=== PATIENT | female | born 1975 | race Caucasian/White ===

== ENCOUNTER → 2017-03-14 | Outpatient (CLI) | payer OTHER ==
[~2017-03-14] MED LIST: /ADVA50050; /DULO30CA; /FEXO18TA; BUDE150T; BUPR100T12; COLA100C2; DOXY100T PO; FLECTOR1.3 TD; FLEXERIL; FOLI1TAB; FURO40TA2 PO; GABA300T; GABA600T3; KEFL500C; LEVO125T6; LEVO150T PO; LYRI75CA PO; NEUR400C PO; OXYC10TA97; PERC5TAB8; PRAV40TA; PRIL20CA; SING10TA31; SING10TA31 PO; SKEL800T5 OR; TOPI50TA PO; TRAM50TA2 PO; Theragran; VENTAER; VICO5TAB; WELL200T PO; ZINC220T2; stool softner
[2017-03-14 14:28] LABS: FREE T4 0.9 NG/DL (0.76-1.46)
== END ==
LOC: M LAB 12:11
PROVIDERS: ATTEND Nurse Practitioner Family
DX: E03.9 Hypothyroidism, unspecified (principal)

== ENCOUNTER → 2017-03-14 | Outpatient (CLI) | payer OTHER ==
--- NOTE | 2017-03-14 13:50 | REP ---
CT THORACIC SPINE WITHOUT CONTRAST: HISTORY: Thoracic pain. COMPARISON: 03/01/2015 A disc bulge is present at the T10-11 level. There is hypertrophy of the posterior articulating facets. There is minimal compression of the thecal sac. The T10 neural foramina are patent. There is no other disc bulge or herniation. The remaining neural foramina are patent. The intervertebral discs and vertebral bodies are normal in height. Small anterior osteophytes are present in the mid and lower thoracic spine. A dorsal column stimulator is present in the spinal canal at the T6-7 level. The stimulator enters the spinal canal at the T7-8 level. There is no subluxation. IMPRESSION: 1. Diffuse disc bulge at the T10-11 level with minimal thecal sac compression. 2. A dorsal column stimulator is present in the spinal canal at the T6-7 level. There is no significant change compared to the previous study. Signed by Gorge Molina MD 03/14/2017 01:55 P
--- NOTE | 2017-03-14 13:56 | REP ---
CT LUMBAR SPINE WITHOUT CONTRAST: HISTORY: Thoracic pain. COMPARISON: 02/16/2016 There is no disc bulge or herniation at the L1-2 through L3-4 levels. The nerves exit the neural foramina without compression. A diffuse disc bulge is present at the L4-5 level. There is hypertrophy of the ligamenta flava and posterior articulating facets. These findings produce mild central canal stenosis. The L4 nerves exit the neural foramina without compression. The patient is status post L5-S1 anterior and posterior spinal fusion and laminectomy. Bone graft material is present anteriorly and metal rods and pedicle screws posteriorly. A diffuse disc bulge is present. There is no thecal sac compression. There is hypertrophy of the posterior articulating facets. The L5 nerves exit the neural foramina without compression. Scar tissue is present at the laminectomy site and in the lateral aspects of the spinal canal. The scar tissue involves the S1 nerves. The L4-5 intervertebral disc is decreased in height consistent with disc degeneration. There is no subluxation. IMPRESSION: 1. Mild central canal stenosis at the L4-5 level secondary to disc bulge, ligamentous and facet hypertrophy. 2. The patient is status post L5-S1 anterior and posterior spinal fusion and laminectomy. There is anatomic alignment of the lumbar spine. Scar tissue involves the S1 nerves. There is no significant change compared to the previous study. Signed by oGrge Molina MD 03/14/2017 02:12 P
--- NOTE | 2017-03-14 20:53 | REP ---
CT CERVICAL SPINE WITHOUT CONTRAST: HISTORY: Cervicalgia. A disc bulge is present at the C3-4 level. Disc bulges with associated osteophyte formation are present at the C4-5 and C5-6 levels. There is minimal narrowing of the spinal canal. Uncinate process hypertrophy is present at the C4-5 and C5-6 levels. This produces minimal to moderate narrowing of the neural foramina. The C4-5 and C5-6 intervertebral discs are decreased in height consistent with disc degeneration. IMPRESSION: There is cervical spondylosis at the C3-4 through C5-6 levels. Signed by Gorge Molina MD 03/15/2017 07:46 A
== END ==
LOC: M RAD 12:40
PROVIDERS: ATTEND Psychiatry & Neurology Neurology
DX: R93.7 Abnormal findings on diagnostic imaging of other parts of musculoskeletal system (principal); M54.2 Cervicalgia; M43.02 Spondylolysis, cervical region; R20.2 Paresthesia of skin; M54.6 Pain in thoracic spine; M43.06 Spondylolysis, lumbar region

== ENCOUNTER → 2017-03-14 | Outpatient (CLI) | payer OTHER ==
[2017-03-14 14:05] LABS: FOLATE 8.3 NG/ML (>5.4); VITAMIN B12 LEVEL 490 PG/ML (247-911)
[2017-03-14 14:17] LABS: TOTAL PROTEIN 6.9 GM/DL (6.4-8.2)
[2017-03-18 12:24] LABS: ALBUMIN 4.09 GM/DL (3.29-5.55); ALBUMIN % 59.3 % (55.8-66.1); GAMMA GLOBULIN % 12.3 % (11.1-18.8)
[2017-03-19 08:06] LABS: VITAMIN E LEVEL 10.4 mg/L (5.3-16.8)
== END ==
LOC: M LAB 12:18
PROVIDERS: ATTEND Psychiatry & Neurology Neurology
DX: Z13.1 Encounter for screening for diabetes mellitus (principal); Z13.29 Encounter for screening for other suspected endocrine disorder; R20.0 Anesthesia of skin

== ENCOUNTER → 2018-04-04 | Outpatient (CLI) | payer OTHER | LOC: M RAD 07:21 | DX: M96.1 Postlaminectomy syndrome, not elsewhere classified (principal); M54.16 Radiculopathy, lumbar region; M51.24 Other intervertebral disc displacement, thoracic region; G43.909 Migraine, unspecified, not intractable, without status migrainosus; M47.814 Spondylosis without myelopathy or radiculopathy, thoracic region; M79.1 Myalgia; M46.1 Sacroiliitis, not elsewhere classified; M51.36 Other intervertebral disc degeneration, lumbar region; M51.26 Other intervertebral disc displacement, lumbar region; M51.27 Other intervertebral disc displacement, lumbosacral region; M25.561 Pain in right knee; M25.60 Stiffness of unspecified joint, not elsewhere classified; G25.81 Restless legs syndrome; M70.60 Trochanteric bursitis, unspecified hip | CPT/HCPCS: 76604 ==

== ENCOUNTER → 2021-07-25 | Outpatient (CLI) | payer OTHER ==
[~2021-07-25] MED LIST changes: -/ADVA50050; -/DULO30CA; +ADVA1AER2; +CYMB1CAP5
== END ==
LOC: M PLALAB 11:34
PROVIDERS: ATTEND Internal Medicine Gastroenterology
DX: K58.0 Irritable bowel syndrome with diarrhea (principal)

== ENCOUNTER → 2021-07-26 | Outpatient (REF) | payer OTHER | LOC: M LAB REF 13:07 | PROVIDERS: ATTEND Internal Medicine Gastroenterology | DX: K58.0 Irritable bowel syndrome with diarrhea (principal) ==

== ENCOUNTER → 2021-08-01 | Outpatient (CLI) | payer OTHER ==
[2021-08-01 17:58] LABS: FREE T4 1.12 NG/DL (0.76-1.46); THYROID STIMULATING HORMONE 0.5 uIU/ML (0.358-3.740)
[2021-08-01 18:01] LABS: THYROID PEROXIDASE ANTIBODY 184.7 U/ML (<60.0)
== END ==
LOC: M PLALAB 14:41
PROVIDERS: ATTEND Internal Medicine Endocrinology, Diabetes & Metabolism
DX: E03.9 Hypothyroidism, unspecified (principal)

== ENCOUNTER → 2021-10-04 | Outpatient (CLI) | payer OTHER ==
[~2021-10-04] MED LIST changes: +ATOR1TAB21 PO; +BUPR150T12 PO; +BUTA-198 PO; +CETI-24 PO; +ESTR1TAB PO; +FLUTISP; +GABA800T4 PO; +HYDR-3363 PO; +LEVO150T7 PO; +MELO15TA28 PO; +MONT10TA10 PO; +OXYC10TA3 PO; +ROPI3TAB3 PO; +TOPA100T12 PO; +TRAZ1TAB14 PO; +VENL150C43 PO; +VENL75TA2 PO
== END ==
LOC: M LABSMTC 10:11
PROVIDERS: ATTEND Anesthesiology
DX: Z01.812 Encounter for preprocedural laboratory examination (principal); Z20.822 Contact with and (suspected) exposure to COVID-19

== ENCOUNTER 2021-10-09 08:00 | Day surgery (SDC) | payer OTHER ==
[~2021-10-09] VITALS: Ht 162.6 cm; Wt 77.6 kg
[~2021-10-09 08:00] MED LIST changes: +NS 1,000 ML IV ONE
[2021-10-09] MEDS ORDERED: propofoL 200 MG/20 ML VIAL As Ordered ONE (08:21)
[2021-10-09] MEDS ORDERED: propofoL 500 MG/50 ML VIAL As Ordered ONE (08:48)
[2021-10-09] MEDS ORDERED: LIDOCAINE 2% 100MG/5ML SDV (FOR ANES.) As Ordered ONE (08:48)
--- NOTE | 2021-10-09 09:03 | ROOR ---
Patient Name: Yesika Camp Procedure Date: 10/09/2021 8:39 AM Date of : 1975 Age: 46 Room: [facility] Gender: Female Note Status: Finalized Procedure: Colonoscopy Indications: Abdominal pain, Clinically significant diarrhea of unexplained origin, Change in bowel habits Providers: Mark Shabazz MD Referring MD: [facility] Provider: Medicines: Monitored Anesthesia Care Complications: No immediate complications. Procedure: Pre-Anesthesia Assessment: - The heart rate, respiratory rate, oxygen saturations, blood pressure, adequacy of pulmonary ventilation, and response to care were monitored throughout the procedure. The Colonoscope was introduced through the anus and advanced to 10 cm into the ileum. The colonoscopy was performed without difficulty. The patient tolerated the procedure well. The quality of the bowel preparation was good. Findings: The perianal and digital rectal examinations were normal. A diminutive polyp was found in the ascending colon. The polyp was sessile. The polyp was removed with a cold snare. Resection and retrieval were complete. The exam was otherwise normal throughout the examined colon. The terminal ileum appeared normal. Biopsies for histology were taken with a cold forceps from the entire colon for evaluation of microscopic colitis. Impression: - One diminutive polyp in the ascending colon, removed with a cold snare. Resected and retrieved. - Small internal hemorrhoids. - The colon is otherwise normal. - The terminal ileum is normal. - Biopsies were taken with a cold forceps from the entire colon for evaluation of microscopic colitis. - (Irritable Bowel Syndrome/IBS suspected.) Recommendation: - Use fiber, for example Citrucel, Fibercon, Konsyl or Metamucil. - Telephone endoscopist for pathology results in 2 weeks. - Repeat colonoscopy in 5 years for surveillance. Procedure Code(s): --- Professional --- 53022, Colonoscopy, flexible; with removal of tumor(s), polyp(s), or other lesion(s) by snare technique 32653, 59, Colonoscopy, flexible; with biopsy, single or multiple Diagnosis Code(s): --- Professional --- R19.4, Change in bowel habit R19.7, Diarrhea, unspecified R10.9, Unspecified abdominal pain K63.5, Polyp of colon CPT copyright 2019 [employer]. All rights reserved. The codes documented in this report are preliminary and upon clinical research tech review may be revised to meet current compliance requirements. Mark Shabazz MD Mark Shabazz MD 10/09/2021 9:03:35 AM Electronically signed by Mark Shabazz MD Number of Addenda: 0 Note Initiated On: 10/09/2021 8:39 AM Estimated Blood Loss: Estimated blood loss: none.
[2021-10-09 09:20] VITALS: BP 112/69
== END 2021-10-09 09:30 | disposition home or self-care (01) ==
LOC: M OPP 08:00
PROVIDERS: ATTEND Internal Medicine Gastroenterology
DX: D12.2 Benign neoplasm of ascending colon (principal); R19.4 Change in bowel habit; R19.7 Diarrhea, unspecified; R10.9 Unspecified abdominal pain; E78.5 Hyperlipidemia, unspecified; E03.9 Hypothyroidism, unspecified; R12 Heartburn; M79.7 Fibromyalgia; F32.A Depression, unspecified; F41.9 Anxiety disorder, unspecified; Z98.51 Tubal ligation status; Z79.899 Other long term (current) drug therapy

== ENCOUNTER → 2021-11-22 | Outpatient (CLI) | payer OTHER ==
[~2021-11-22] MED LIST changes: -NS 1,000 ML IV ONE
--- NOTE | 2021-11-22 13:17 | REPVR ---
PROCEDURE INFORMATION: Exam: CT Maxillofacial Without Contrast, Sinus Exam date and time: 11/22/2021 10:44 AM Age: 46 years old Clinical indication: Face pain; Additional info: Chronic maxillary sinititus TECHNIQUE: Imaging protocol: CT Maxillofacial without contrast. Focus on the sinuses. Radiation optimization: All CT scans at this facility use at least one of these dose optimization techniques: automated exposure control; mA and/or kV adjustment per patient size (includes targeted exams where dose is matched to clinical indication); or iterative reconstruction. COMPARISON: CT Spine,cervical w/o contrast 03/14/2017 12:50 PM FINDINGS: Frontal sinuses: Normal. No air-fluid levels. Ethmoid air cells: Normal. No air-fluid levels. Sphenoid sinuses: Normal. No air-fluid levels. Maxillary sinuses: Normal. No air-fluid levels. Ostiomeatal units are patent. Nasal cavity/Septum: Unremarkable. Orbital cavity: Orbits are normal. Globes are unremarkable. Bones/joints: Unremarkable. Soft tissues: Unremarkable. IMPRESSION: The visualized paranasal sinuses are clear. There are no air fluid levels to suggest acute sinusitis. Electronically signed by: Toni Lopez On 11/22/2021 13:17:02 PM
== END ==
LOC: M PLAIMG 10:28
PROVIDERS: ATTEND Physician Assistant Medical
DX: J32.0 Chronic maxillary sinusitis (principal)

== ENCOUNTER → 2021-12-14 | Outpatient (CLI) | payer OTHER ==
[~2021-12-14] MED LIST changes: -MONT10TA10 PO; +MONT10TA97 PO
[2021-12-14 15:19] LABS: FREE T4 1.43 NG/DL (0.76-1.46); THYROID STIMULATING HORMONE 2.64 uIU/ML (0.358-3.740)
== END ==
LOC: M PLALAB 09:19
PROVIDERS: ATTEND Nurse Practitioner Family
DX: E06.3 Autoimmune thyroiditis (principal)

== ENCOUNTER → 2022-02-02 | Outpatient (CLI) | payer OTHER | LOC: M PLARAD 11:11 | PROVIDERS: ATTEND Nurse Practitioner Family | DX: M54.16 Radiculopathy, lumbar region (principal); Z53.9 Procedure and treatment not carried out, unspecified reason ==

== ENCOUNTER → 2022-05-08 | Outpatient (CLI) | payer OTHER | LOC: M WHC 09:56 | PROVIDERS: ATTEND Obstetrics & Gynecology | DX: R10.2 Pelvic and perineal pain (principal) ==

== ENCOUNTER → 2022-09-07 | Outpatient (CLI) | payer OTHER ==
[2022-09-07 11:22] LABS: BASO # 0.1 10^3/uL (0.0-0.2); BASO % 0.7 % (0.0-1.0); EOS # 0.1 10^3/uL (0.0-0.5); EOS % 1.4 % (0.0-3.0); HEMATOCRIT 46.1 % (36.0-47.0); HEMOGLOBIN 15.1 g/dl (12.0-15.5); LYMPH # 3.5 10^3/uL (1.5-5.0); LYMPH % 34.6 % (24.0-44.0); MEAN CORPUSCULAR HEMOGLOBIN 33.3 pg (27.0-33.0); MEAN CORPUSCULAR HGB CONC 32.8 g/dl (32.0-36.5); MEAN CORPUSCULAR VOLUME 101.5 fl (80.0-96.0); MONO # 0.7 10^3/uL (0.0-0.8); NEUTROPHILS # 5.6 10^3/uL (1.5-8.5); NEUTROPHILS % 55.9 % (36.0-66.0); PLATELET COUNT, AUTOMATED 299 10^3/uL (150-450); RED BLOOD COUNT 4.54 10^6/uL (4.00-5.40)
[2022-09-07 12:11] LABS: ALBUMIN 3.6 GM/DL (3.2-5.2); BLOOD UREA NITROGEN 10 MG/DL (7-18); CARBON DIOXIDE LEVEL 29 MEQ/L (21-32); CHLORIDE LEVEL 105 MEQ/L (98-107); CHOLESTEROL LEVEL 170 MG/DL (<200); CREATININE FOR GFR 0.77 MG/DL (0.55-1.30); FREE T4 0.98 NG/DL (0.76-1.46); GLOMERULAR FILTRATION RATE > 60.0 (>58); GLUCOSE, FASTING 94 MG/DL (70-100); HDL CHOLESTEROL 68 MG/DL (>40); LDL CHOLESTEROL 77 MG/DL (<100); NON-HDL-C 102 MG/DL; PHOSPHORUS LEVEL 3.5 MG/DL (2.5-4.9); POTASSIUM SERUM 4.5 MEQ/L (3.5-5.1); SODIUM LEVEL 137 MEQ/L (136-145); TRIGLYCERIDES LEVEL 127 MG/DL (<150)
== END ==
LOC: M RAD 10:42
PROVIDERS: ATTEND Physician Assistant
DX: Z01.818 Encounter for other preprocedural examination (principal); I10 Essential (primary) hypertension; E78.5 Hyperlipidemia, unspecified; E03.9 Hypothyroidism, unspecified; R94.31 Abnormal electrocardiogram [ECG] [EKG]; Z96.9 Presence of functional implant, unspecified

== ENCOUNTER → 2023-01-09 | Outpatient (CLI) | payer OTHER | LOC: M SOG 08:04 | PROVIDERS: ATTEND Orthopaedic Surgery | DX: M50.31 Other cervical disc degeneration, high cervical region (principal); M50.321 Other cervical disc degeneration at C4-C5 level; M50.322 Other cervical disc degeneration at C5-C6 level ==

== ENCOUNTER → 2023-02-28 | Outpatient (CLI) | payer OTHER ==
[~2023-02-28] MED LIST changes: +FLUT50SP17; -FLUTISP
== END ==
LOC: M PLAIMG 11:40
PROVIDERS: ATTEND Nurse Practitioner Family
DX: M47.814 Spondylosis without myelopathy or radiculopathy, thoracic region (principal)

== ENCOUNTER → 2023-09-24 | Outpatient (REF) ==
[~2023-09-24] MED LIST changes: +ROPI3TAB18 PO; -ROPI3TAB3 PO
== END ==
LOC: M PLAIMG 10:31
PROVIDERS: ATTEND Internal Medicine
DX: R52 Pain, unspecified (principal)

== ENCOUNTER → 2023-10-02 | Outpatient (REF) | LOC: M PLAIMG 08:21 | PROVIDERS: ATTEND Internal Medicine | DX: M25.512 Pain in left shoulder (principal); M13.861 Other specified arthritis, right knee ==

== ENCOUNTER 2025-01-28 06:02 | Day surgery (SDC) | payer OTHER ==
[~2025-01-28] VITALS: Ht 162.6 cm; Wt 85.0 kg
[~2025-01-28 06:02] MED LIST changes: +ALBU2.5V10 INH; +B-12100010 PO; +BUDE10.7; +BUPR-597 PO; +C 50TAB PO; +CALC600T61 PO; +COQ150CH PO; -FLUT50SP17; +FLUTISP; +GABA-1635 PO; -GABA800T4 PO; +LEVO175T2 PO; +OMEP40CA5 PO; +OXYB5TAB14 PO; +PHEN-239 PO; +RIME75TA PO; +ROPI3TAB PO; +SUMA50TA2 PO; +TIZA10TA PO; +VITA100093 PO
[2025-01-28 06:35] LABS: HEMATOCRIT 43.2 % (36.0-47.0); HEMOGLOBIN 14.7 g/dl (12.0-15.5); MEAN CORPUSCULAR HEMOGLOBIN 33.2 pg (27.0-33.0); MEAN CORPUSCULAR VOLUME 97.5 fl (80.0-96.0); PLATELET COUNT, AUTOMATED 330 10^3/uL (150-450); RED BLOOD COUNT 4.43 10^6/uL (4.00-5.40); WHITE BLOOD COUNT 10.1 10^3/uL (4.0-10.0)
[2025-01-28] MEDS ORDERED: LR 1,000 ML IV SCH ×3 (06:40→10:20)
[2025-01-28] MEDS ORDERED: ONDANSETRON 4MG 2ML VIAL As Ordered ONE (06:51)
[2025-01-28] MEDS ORDERED: LIDOCAINE 2% 100MG/5ML SDV (FOR ANES.) As Ordered ONE (06:51)
[2025-01-28] MEDS ORDERED: KETOROLAC 60MG 2ML VIAL As Ordered ONE (06:51)
[2025-01-28] MEDS ORDERED: propofoL 200 MG/20 ML VIAL As Ordered ONE (06:51)
[2025-01-28] MEDS ORDERED: dexmedeTOMIDine (4MCG/ML)200MCG/50ML BTL (PRECEDEX) As Ordered ONE (06:51)
[2025-01-28] MEDS ORDERED: MIDAZOLAM INJ 2MG/2ML VIAL As Ordered ONE (06:56)
[2025-01-28] MEDS ORDERED: fentaNYL 100 MCG/2 ML INJECTION As Ordered ONE (06:56)
[2025-01-28] MEDS: ceFAZolin SOD 2 GM IV ONCE IV ONE (07:37)
[2025-01-28] MEDS ORDERED: ACETAMINOPHEN 1000MG/100ML IV BAG As Ordered ONE (07:41)
[2025-01-28] MEDS ORDERED: oxyCODONE 5MG TAB PO PRN (08:20)
[2025-01-28] MEDS ORDERED: fentaNYL 100 MCG/2 ML INJECTION IV PRN (08:20)
[2025-01-28] MEDS ORDERED: HYDROMORPHONE HCL 0.5 MG/ 0.5 ML SYRINGE IV PRN (08:20)
[2025-01-28] MEDS ORDERED: ONDANSETRON 4MG 2ML VIAL IV PRN (08:20)
[2025-01-28 08:48] VITALS: BP 102/59; TEMP 96.9; O2SAT 97
== END 2025-01-28 09:15 | disposition home or self-care (01) ==
LOC: M SDC 06:02
PROVIDERS: ATTEND Specialist
DX: N39.3 Stress incontinence (female) (male) (principal); J44.9 Chronic obstructive pulmonary disease, unspecified; E06.3 Autoimmune thyroiditis; E78.00 Pure hypercholesterolemia, unspecified; G62.9 Polyneuropathy, unspecified; G43.909 Migraine, unspecified, not intractable, without status migrainosus; G25.81 Restless legs syndrome; K21.9 Gastro-esophageal reflux disease without esophagitis; Z79.899 Other long term (current) drug therapy; Z79.890 Hormone replacement therapy; Z90.711 Acquired absence of uterus with remaining cervical stump
CPT/HCPCS: 36415; 57288; 85027; 86850; 86900; 86901; C1771; J0131; J0665; J0690; J1100; J1885; J2250; J2405; J3010